=== PATIENT | female | born 1925 | race Caucasian/White ===

== ENCOUNTER 2017-05-21 09:11 | Inpatient (IN) ==
--- NOTE | 2017-05-21 09:34 | Emergency Department Note ---
Arrival - Arrival Chief Complaint: Altered Mental Status Stated Complaint: AMS ED Nursing Triage Note: Pt sent [place] [facility] [place] after being taken to eat breakfast , then while attempting to give patient her medications she became unresponsive to [facility] staff. Mode of Arrival: Stretcher Source: Old Records Reviewed Time Seen by Provider: 05/21/17 09:29 - History of Present Illness HPI Narrative: This 89-year-old white female resident of the halfway with severe dementia presents on referral from the halfway for a spell observed during breakfast. During breakfast service the patient was alleged to have become unresponsive to the nursing staff as far as communications but not as concerns consciousness. The patient currently states she feels fine but is disoriented to time and place. Notable, at the halfway she returned to herself with the use of ammonia. The patient cannot give any cognizant history herself at this time, but appears medically stable. A family member that is present states she appears less communicative than usual as he states that although she is demented, she ambulates well and can carry on a conversation normally frequently going out to eat with the family. Of note, the patient is a DNR. Onset (ago): hour(s) (Patient presents 1 hour after episode) Allergies/Adverse Reactions: Allergies Allergy/AdvReac Type Severity Reaction Status Date / Time sertraline [From Zoloft] Allergy Unknown/Unable Verified 05/21/17 09:23 to obtain sulfamethoxazole Allergy Unknown/Unable Verified 05/21/17 09:23 [From Bactrim] to obtain trimethoprim [From Bactrim] Allergy Unknown/Unable Verified 05/21/17 09:23 to obtain Review of System - Review of System ROS unobtainable: due to mental status Medical,Surgical,& Family Hx - Medical History Cardio: History of: Cardiac Dysrhythmia (afib), CHF, Hypertension Psychological: History of: Depression Neurology: History of: Dementia (alzheimer's) - Social History Smoking Status: Never smoker Exam Physical Examination: GENERAL: Well developed, well nourished elderly white female in no acute distress. HEENT: Normocephalic. No trauma. Moist mucous membranes. EOMI. PERRLA. ENT NML NECK: Supple. No adenopathy. CARDIAC: Regular. No murmurs. Heart rate 92 CHEST: Clear to auscultation. No respiratory distress. O2 sat 93 per ABDOMEN: Soft. Nontender. Active bowel sounds. EXTREMITIES: No trauma. Normal ROM. No pedal edema. SKIN: No diaphoresis. No rash. NEURO: Alert. Oriented to person only. Motor, sensory, vibratory intact. No focal deficits. Vital Signs: Vital Signs Temperature 97.1 F L 05/21/17 09:28 Pulse Rate 80 05/21/17 10:31 Respiratory Rate 18 05/21/17 10:31 Blood Pressure 156/68 05/21/17 10:31 O2 Sat by Pulse Oximetry 97 05/21/17 10:31 Course - Reevaluation(s) Reevaluation #1: Discussed with family, and our plan is for admission and evaluation with PT to see if the patient can return to her halfway setting. - Consultations Consultation #1: Discussed with Dr. Mehta who will admit for further evaluation treatment. Results - Labs CBC & BMP: 05/21/17 10:00 05/21/17 10:00 Labs: I have reviewed the laboratory and noted its gross normality - Impressions EKG: Atrial fibrillation at 78 with normal QRS interval. Nonspecific ST changes. No acute injury pattern. - Diagnostic Findings Procedure: Chest x-ray: image reviewed by me, report reviewed by me ( Cardiomegaly with interstitial scarring and small effusions), CT: image reviewed by me, report reviewed by me (Head: Microvascular ischemia and cerebral atrophy with evidence of an acute or subacute left parietal/occipital infarct with mass-effect) Disposition Clinical Impression: CVA, Dementia Case discussed with: patient's family Disposition: Still a Patient Condition: Stable Time of Disposition: 11:15
--- NOTE | 2017-05-21 09:50 | CT Report ---
Exam: CT scan of brain without contrast Date: 05/21/2017 Indication: Altered mental status Comparison: None Patient's classification: Emergency department Technical: Images were obtained from the skull base to the vertex without the use of intravenous contrast. Dose reduction was performed with decreasing kv and mA and automated exposure Total DLP: 997.9 mGy*cm Findings: The examination reveals decreased attenuation in the left parietal-occipital lobe consistent with an area of infarction. The ventricles are mildly enlarged. Small vessel changes are present. The brainstem is intact. The cerebellum reveals atrophic changes. No acute hemorrhage present. The paranasal sinuses globes and cell and mastoids are otherwise intact. Minimal calcification of the falx cerebri present. Impression: 1. Findings consistent with acute to subacute left parietal/ occipital lobe infarction with some mass effect on the trigone of left lateral ventricle. No obvious hemorrhage present. 2. Diffuse small vessel ischemic changes and component of atrophy. MRI the brain may be beneficial for further evaluation. PROCEDURE INTERPRETED AT [facility] DEPARTMENT OF RADIOLOGY Final Report Signed by: Dr. Casper Johnson
--- NOTE | 2017-05-21 09:56 | XRay Report ---
Exam: XR chest 1V portable Date: 05/21/2017 9:30 AM Indication: Altered mental status Comparison: 03/17/2010 Technical: AP Findings: Cardiomegaly with low volume effusions. External cardiac leads are present. ASVD is present. Calcification of the endobronchial airway. Previous cholecystectomy clips present. Mild dextroscoliosis. Scarring present in the perihilar regions. No pneumothorax. Impression: 1. Cardiomegaly with tiny low volume effusions and underlying component of COPD and fibrotic scarring 2. Previous cholecystectomy PROCEDURE INTERPRETED AT [facility] DEPARTMENT OF RADIOLOGY Final Report Signed by: Dr. Casper Johnson
[2017-05-21] MEDS ORDERED: methylPREDNISolone SOD SUC 125 MG/2 ML VIAL IV STA (10:07)
[2017-05-21 10:15] LABS: Basophils % 0.4 % (0.0-0.8); Eosinophils % 0.9 % (0.00-10.9); Hematocrit 37.4 VOL% (35.7-47.0); Hemoglobin 11.5 GM/DL (12.0-16.0); Immature Granulocytes % 0.2 %; Immature Granulocytes Absolute 0.01 #; Lymphocytes # 0.8 10*3/uL (1.4-4.0); Lymphocytes % 16.7 % (21.3-54.2); Mean Corpuscular HGB Conc 30.7 GM/DL (32-36); Mean Corpuscular Hemoglobin 29 PG (27-34); Mean Corpuscular Volume 95.2 FL (87-102); Mean Platelet Volume 11.6 FL (9.6-12.0); Monocytes # 0.4 10*3/uL (0.11-0.8); Monocytes % 8.9 % (1.7-12.7); Neutrophils # 3.4 10*3/uL (1.4-7.4); Neutrophils % 72.9 % (38.7-73.9); Platelet Count 157 T/CUMM (130-400); Red Blood Count 3.93 MC/CUMM (3.8-5.5); Red Cell Distribution Width 15.8 % (9.3-17.3); White Blood Count 4.6 T/CUMM (4-12)
--- NOTE | 2017-05-21 10:24 | EKG Report ---
Stationary ECG Study [facility] ER Test Date: 05/21/2017 10:22:39 AM Pat Name: JOSE WHITE Department: Room: Gender: F It Business Process Architect: : [id number] Requested by: Dave Mitchell Order Number: [id number] Reading MD: SHEILA DE LA ROSA Intervals Natalia Rate: 78 P: 999 OK: 0 QRS: -64 QRSD: 115 T: 11 QT: 384 QTc: 417 Interpretive Statements ATRIAL FIBRILLATION LEFT ANTERIOR FASCICULAR BLOCK Electronically Signed On 05-22-17 11:41:12 CDT by SHEILA DE LA ROSA [email or web address]
[2017-05-21 10:30] LABS: Apearance,Urine CLEAR (Clear); Bilirubin,Urine Negative (Negative); Blood, Urine Small mg/dL (Negative); Glucose,Urine (UA) Negative (Negative); Ketones,Urine 5 mg/dL (Negative); Mucus,Urine Occasional /LPF (Occasional); Nitrite,Urine Negative (Negative); Protein,Urine 30 MG/DL; RBC,Urine 4 /HPF (0-4); Squamous Epithelial Cell,Urine Occasional /HPF (0-10); Urine Color Amber (Yellow); Urine Specific Gravity 1.026 (1.001-1.035); WBC,Urine 2 /HPF (0-6)
[2017-05-21 10:47] LABS: Lactic Acid 1.1 MMOL/L (0.4-2.0)
[2017-05-21 10:50] LABS: Alanine Aminotransferase 12 U/L (13-56); Albumin 3.3 G/DL (3.4-5.0); Alkaline Phosphatase 70 U/L (45-117); Aspartate Amino Transferase 22 U/L (0-37); Blood Urea Nitrogen 18 MG/DL (7-18); Calcium 8.8 MG/DL (8.5-10.1); Glucose 100 MG/DL (74-106); Osmolality,Calculated 284.1 MOS/KG (273-304); Potassium 4.1 MMOL/L (3.5-5.1); Sodium 142 MMOL/L (136-145); Total Protein 6.8 G/DL (6.4-8.3); Troponin I Only < 0.015 NG/ML (0.00-0.045)
[2017-05-21 10:54] LABS: Ammonia < 10 UMOL/L (11-32)
[2017-05-21] MEDS ORDERED: ONDANSETRON 4 MG/2 ML VIAL IV PRN (11:17)
[2017-05-21] MEDS ORDERED: methylPREDNISolone SOD SUC 125 MG/2 ML VIAL ONE (11:28)
--- NOTE | 2017-05-21 11:32 | Family Practice History&Phys ---
Assessment and Plan (1) CVA (cerebrovascular accident) Status: Acute Assessment and plan: Will consult neurology, spoke to ,, 2. Will continue home oral blood thinners, follow neurologist recommendations, Patient has severe dementia continue Aricept, Namenda, Remeron 3. A. fib, chronic, presently on Eliquis 4. CHF, stable on meds 5.HTN , stable, continue current antihypertensives, 6. Hyperlipidemia, on pravastatin 7. GERD, stable,on Prilosec 8. Depression stable on Lexapro. Current Visit: Yes Qualifiers: CVA mechanism: unspecified Qualified Code(s): I63.9 - Cerebral infarction, unspecified (2) Severe dementia Status: Acute Current Visit: Yes (3) Hypertension, essential Status: Acute Current Visit: Yes (4) Depression Status: Chronic Current Visit: Yes Qualifiers: Depression Type: unspecified Qualified Code(s): F32.9 - Major depressive disorder, single episode, unspecified (5) GERD (gastroesophageal reflux disease) Status: Chronic Current Visit: Yes Qualifiers: Esophagitis presence: without esophagitis Qualified Code(s): K21.9 - Gastro -esophageal reflux disease without esophagitis (6) CHF (congestive heart failure) Status: Chronic Current Visit: Yes Qualifiers: Congestive heart failure type: unspecified congestive heart failure type (7) Chronic atrial fibrillation Status: Chronic Current Visit: Yes History of Present Illness Chief complaint: was brought in from [facility] ,was unresponsive , this AM, by EMS History of present illness: Ms. Randhawa is a 89 year old female PCP: ,sees twice a year,. Consulted Neurologist, . Patient admitted for new onset CVA, for possible conservative management, Patient has chronic A. fib, rate controlled, asymptomatic, history of hypertension, GERD, severe dementia, depression, CHF. Patient is a poor historian, with severe dementia ,elderly female patient, DNR status,in [place] since 2 years, History obtained from caregiver, patient's [id number] present at the bedside. Brought in by EMS, for unresponsive, was slumped in chair during today a.m. breakfast time, noted at [place], by the nursing staff at [facility], Accompanied by , daughter in law , no fever , nausea, vomiting , chest pain , SOB , headaches or dizziness, reported by the caregiver, in the past week from [facility]pc As per the caregiver patient ambulates well in the [facility]. Home Medications Medication Instructions Recorded Confirmed Type Acetaminophen Tab [Tylenol Tab] 2 tablet PO Q4HR PRN 05/21/17 05/21/17 History Calcium (Carb)/Vit D 600-400 1 tablet PO BID 05/21/17 05/21/17 History [Caltrate 600 + D] Carvedilol [Coreg] 1 tablet PO BID 05/21/17 05/21/17 History Donepezil [Aricept] 10 mg PO BEDTIME 05/21/17 05/21/17 History Escitalopram [Lexapro] 1 tablet PO BEDTIME 05/21/17 05/21/17 History Ferrous Sulfate [Iron] 325 mg PO BID 05/21/17 05/21/17 History Gabapentin Cap/Tab [Neurontin 1 capsule PO BEDTIME 05/21/17 05/21/17 History Cap/Tab] LORazepam TAB [Ativan Tab] 1 tablet PO BID 05/21/17 05/21/17 History Lisinopril [Lisinopril] 1 tablet PO DAILY 05/21/17 05/21/17 History Memantine [Namenda] 1 tablet PO BID 05/21/17 05/21/17 History Mirtazapine [Remeron] 7.5 mg PO BEDTIME 05/21/17 05/21/17 History Omeprazole [Prilosec] 40 mg PO DAILY 05/21/17 05/21/17 History Potassium Chloride [Klor-Con 10] 1 tablet PO TID 05/21/17 05/21/17 History Pravastatin [Pravachol] 1 tablet PO DAILY 05/21/17 05/21/17 History Raloxifene [Evista] 1 tablet PO DAILY 05/21/17 05/21/17 History Rivaroxaban [Xarelto] 1 tablet PO DAILY 05/21/17 05/21/17 History Allergies Allergy/AdvReac Type Severity Reaction Status Date / Time sertraline [From Zoloft] Allergy Unknown/Unable Verified 05/21/17 09:23 to obtain sulfamethoxazole Allergy Unknown/Unable Verified 05/21/17 09:23 [From Bactrim] to obtain trimethoprim [From Bactrim] Allergy Unknown/Unable Verified 05/21/17 09:23 to obtain ROS unobtainable: due to mental status, due to dementia - Constitutional Constitutional: Present: as per HPI - EENT Eyes: Present: as per HPI Nose, mouth and throat: Present: as per HPI - Respiratory Respiratory: Present: as per HPI - Gastrointestinal Gastrointestinal: Present: as per HPI - Genitourinary Genitourinary: Present: as per HPI - Musculoskeletal Musculoskeletal: Present: as per HPI - Neurological Neurological: Present: as per HPI - Endocrine Endocrine: Present: as per HPI - Hematologic/Lymphatic Hematologic/Lymphatic: Present: as per HPI Medical,Surgical,& Family Hx - Medical History Cardio: History of: Cardiac Dysrhythmia (afib), CHF, Hypertension Psychological: History of: Depression Neurology: History of: Dementia (alzheimer's) - Social History Smoking Status: Never smoker Exam - Constitutional Vitals: Period Temp Pulse Resp BP Sys/Mohan Pulse Ox Last 24 Hr 97.1 F-97.1 F 75-92 18-19 139-156/68-93 93-97 Exam: Examination: Patient examined in the ER GENERAL: Awake, disoriented in no acute distress , elderly female pt, Lying in the bed, HEENT: Decreased hearing,PERRLA. EOMI. Mucous membranes are moist. NECK: Neck is supple. No JVD. No carotid bruit. No thyromegaly. CVS: Irregularly irregular heart rate, rate below 100 RESPIRATORY: Clear to ausculation bilaterally , No wheezes, rales or rhonchi. ABDOMEN: Soft and nontender. Bowel sounds are present. No hepatosplenomegaly. EXT: No edema. TWISTER HAND: Patient is awake, speech normal, no change as per the caregiver. Follows simple commands, Cranial nerves 2-12 grossly intact. Motor strength 4+/ 5 bilateral upper extremities, 4/5 bilateral lower extremities. Results - Labs CBC & BMP: 05/21/17 10:00 05/21/17 10:00 Lab Results: I have reviewed the past 24 hour labs - Impressions Head CT without contrast from 05/21/2017 Impression: 1. Findings consistent with acute to subacute left parietal/ occipital lobe infarction with some mass effect on the trigone of left lateral ventricle. No obvious hemorrhage present. 2. Diffuse small vessel ischemic changes and component of atrophy. Chest x-ray from 05/21/2017 Impression: 1. Cardiomegaly with tiny low volume effusions and underlying component of COPD and fibrotic scarring 2. Previous cholecystectomy
[2017-05-21] MEDS: LORazepam 0.5 MG TABLET PO SCH (20:31)
[2017-05-21] MEDS: MEMANTINE 10 MG TABLET PO SCH (20:31)
[2017-05-21] MEDS: APIXABAN 2.5 MG TABLET PO SCH (20:31)
[2017-05-21] MEDS: CARVEDILOL 3.125 MG TABLET PO SCH (20:32)
[2017-05-21] MEDS ORDERED: MIRTAZAPINE 15 MG TABLET PO SCH (21:00)
[2017-05-21] MEDS ORDERED: PRAVASTATIN 20 MG TABLET PO SCH (21:00)
[2017-05-21] MEDS ORDERED: RALOXIFENE 60 MG TABLET PO SCH (21:00)
[2017-05-21] MEDS ORDERED: DONEPEZIL 10 MG TABLET PO SCH (21:00)
--- NOTE | 2017-05-22 08:51 | Family Practice Progress Note ---
Exam (Progress Note) - Constitutional Vitals: Period Temp Pulse Resp BP Sys/Mohan Pulse Ox Last 24 Hr 96.5 F-98.1 F 75-124 16-20 124-162/58-94 93-97 Results - Labs CBC & BMP: 05/21/17 10:00 05/21/17 10:00 Assessment and Plan (1) CVA (cerebrovascular accident) Status: Acute Assessment and plan: Will consult neurology, spoke to ,, 2. Will continue home oral blood thinners, follow neurologist recommendations, Patient has severe dementia continue Aricept, Namenda, Remeron 3. A. fib, chronic, presently on Eliquis 4. CHF, stable on meds 5.HTN , stable, continue current antihypertensives, 6. Hyperlipidemia, on pravastatin 7. GERD, stable,on Prilosec 8. Depression stable on Lexapro. Current Visit: Yes Qualifiers: CVA mechanism: unspecified Qualified Code(s): I63.9 - Cerebral infarction, unspecified (2) Severe dementia Status: Acute Current Visit: Yes (3) Hypertension, essential Status: Acute Current Visit: Yes (4) Depression Status: Chronic Current Visit: Yes Qualifiers: Depression Type: unspecified Qualified Code(s): F32.9 - Major depressive disorder, single episode, unspecified (5) GERD (gastroesophageal reflux disease) Status: Chronic Current Visit: Yes Qualifiers: Esophagitis presence: without esophagitis Qualified Code(s): K21.9 - Gastro -esophageal reflux disease without esophagitis (6) CHF (congestive heart failure) Status: Chronic Current Visit: Yes Qualifiers: Congestive heart failure type: unspecified congestive heart failure type (7) Chronic atrial fibrillation Status: Chronic Current Visit: Yes
--- NOTE | 2017-05-22 08:54 | Neurology Consult Note ---
History of Present Illness History of present illness: It 11 years old right-handed white lady who is a resident of [facility] with past medical history significant for hypertension, GERD, dementia, depression, CHF, atrial fibrillation admitted to the hospital with fairly acute onset of unresponsiveness. Family reported that she slumped in chair during the breakfast yesterday morning. She has regained some of her strength and speech. She is swallowing good. Recently her Eliquis was stopped because of low H&H. She is back on Eliquis. A CT of the head revealed acute left parietal/occipital lobe subacute to acute infarct. No nausea, vomiting, chest pain, shortness of breath, headache or dizziness reported. Family would like to go back to [facility] today. Home Medications Medication Instructions Recorded Confirmed Type Acetaminophen Tab [Tylenol Tab] 2 tablet PO Q4HR PRN 05/21/17 05/21/17 History Calcium (Carb)/Vit D 600-400 1 tablet PO BID 05/21/17 05/21/17 History [Caltrate 600 + D] Carvedilol [Coreg] 1 tablet PO BID 05/21/17 05/21/17 History Donepezil [Aricept] 10 mg PO BEDTIME 05/21/17 05/21/17 History Escitalopram [Lexapro] 1 tablet PO BEDTIME 05/21/17 05/21/17 History Ferrous Sulfate [Iron] 325 mg PO BID 05/21/17 05/21/17 History Gabapentin Cap/Tab [Neurontin 1 capsule PO BEDTIME 05/21/17 05/21/17 History Cap/Tab] LORazepam TAB [Ativan Tab] 1 tablet PO BID 05/21/17 05/21/17 History Lisinopril [Lisinopril] 1 tablet PO DAILY 05/21/17 05/21/17 History Memantine [Namenda] 1 tablet PO BID 05/21/17 05/21/17 History Mirtazapine [Remeron] 7.5 mg PO BEDTIME 05/21/17 05/21/17 History Omeprazole [Prilosec] 40 mg PO DAILY 05/21/17 05/21/17 History Potassium Chloride [Klor-Con 10] 1 tablet PO TID 05/21/17 05/21/17 History Pravastatin [Pravachol] 1 tablet PO DAILY 05/21/17 05/21/17 History Raloxifene [Evista] 1 tablet PO DAILY 05/21/17 05/21/17 History Rivaroxaban [Xarelto] 1 tablet PO DAILY 05/21/17 05/21/17 History Allergies Allergy/AdvReac Type Severity Reaction Status Date / Time sertraline [From Zoloft] Allergy Unknown/Unable Verified 05/21/17 09:23 to obtain sulfamethoxazole Allergy Unknown/Unable Verified 05/21/17 09:23 [From Bactrim] to obtain trimethoprim [From Bactrim] Allergy Unknown/Unable Verified 05/21/17 09:23 to obtain 12 point system: reviewed and no additional remarkable complaints except as stated Medical,Surgical,& Family Hx - Medical History Cardio: History of: Cardiac Dysrhythmia (afib), CHF, Hypertension Psychological: History of: Depression Neurology: History of: Dementia (alzheimer's) Hematology: History of: Anemia - Social History Smoking Status: Never smoker Frequency of Alcohol Use: None Type of Drug Use: None Exam - Constitutional Vitals: Period Temp Pulse Resp BP Sys/Mohan Pulse Ox Last 24 Hr 96.5 F-98.1 F 75-124 16-20 124-162/58-94 93-97 Exam: GENERAL: Patient is in no acute distress. NECK: Neck is supple. There is no JVD. No carotid bruits present. No thyroid masses. CVS: First and second heart sounds are normal. There is no S3 present. Regular rate and rhythm. RESPIRATORY: Lungs are clear to auscultation without any rales or rhonchi. ABDOMEN: Soft and non-tender. Bowel sounds are present. There is no hepatosplenomegaly. EXT: There is no palpable edema. Peripheral pulses are present. Skin: No rashes Central Nervous system: General: Alert, awake Speech: semi Fluent Comprehension: Fair Facial expressions: Normal Cranial Nerves: CN1/Olfactory: Normal CN II/ Optic: Normal, Visual [place] unreliable CN III, and : JERRY & EOMI CN V: Normal & intact CN VII: face is symmetric CNVIII: Normal CN XI/X/XI/XII: Intact and Normal Motor: Bulk and Tone is normal. Strength in the right 3/5 Strength in the left 3/5 Sensory: Grossly intact for all the modalities of PP, LT and temp sense Reflexes: 1+ and symmetrical Cerebellar function: Slow finger to nose and heel to robles testing. Toes: Equivocal Gait: Not tested at this time however did get up with mod assist to max assist to go to the bathroom Results - Labs CBC & BMP: 05/21/17 10:00 05/21/17 10:00 Assessment and Plan (1) Acute CVA (cerebrovascular accident) Status: Acute Assessment and plan: Agree with Eliquis 2.5 mg twice a day. Keep an eye on H&H Recommend TMR however family would like to take her back to [place]. Okay to be discharged today from neuro standpoint. No further/new recommendations. Recommend conservative management overall due to her advanced age Thank you for the consult Current Visit: Yes
[2017-05-22] MEDS ORDERED: LISINOPRIL 10 MG TABLET PO SCH (09:00)
[2017-05-22] MEDS ORDERED: PANTOPRAZOLE 40 MG TABLET PO SCH (09:00)
[2017-05-22] MEDS ORDERED: ESCITALOPRAM 10 MG TABLET PO SCH (09:00)
[2017-05-22] MEDS ORDERED: LORazepam 0.5 MG TABLET PO PRN (09:06)
[2017-05-22] MEDS: MEMANTINE 10 MG TABLET PO SCH (10:13)
[2017-05-22] MEDS: APIXABAN 2.5 MG TABLET PO SCH (10:13)
[2017-05-22] MEDS: CARVEDILOL 3.125 MG TABLET PO SCH (10:13)
[2017-05-22] MEDS: LORazepam 0.5 MG TABLET PO SCH (10:19)
[2017-05-22 11:47] VITALS: BP 147/87
--- NOTE | 2017-05-22 13:08 | Discharge Summary ---
Hospital Course - Hospital Course Hospital Course: Ms. Randhawa is a 89 year old female PCP: ,sees twice a year,. resident of [facility] dementia care [facility],DNR status,in [place] since 2 years, Consulted Neurologist, . Patient admitted for new onset CVA, for conservative management, Patient has chronic A. fib, rate controlled, asymptomatic, history of hypertension, GERD, severe dementia, depression, CHF. Patient is a poor historian, History obtained from caregiver, mentioned with fairly acute onset of unresponsiveness, it was noted that she slumped in chair during the breakfast on the day of admission, No nausea, vomiting, chest pain, shortness of breath, headache or dizziness was reported. Pt managed only conservatively given her age, no thrombolytics done after admission except eliquis, cause of potential side effects, She regained some of her strength and speech back the next day. swallowing was good. She was put back on Eliquis, was discontinued previously cause of low H& H concern,. A CT of the head revealed acute left parietal/occipital lobe subacute to acute infarct. PT/OT was consulted, daily labs were ordered, H/H was stable, 11.5/37.4 the patient was discharged to [facility], Family was given update of the pt's status from time to time,till she got discharged, Diagnosis - Discharge Diagnosis (1) CVA (cerebrovascular accident) Status: Acute (2) Severe dementia Status: Chronic (3) Hypertension, essential Status: Chronic (4) Depression Status: Chronic (5) GERD (gastroesophageal reflux disease) Status: Chronic (6) CHF (congestive heart failure) Status: Chronic (7) Chronic atrial fibrillation Status: Chronic Discharge Plan - Discharge Data Disposition: Disch/Xfer to Snf Condition at Discharge: Stable Discharge Diet: low salt diet Activity: resume usual activities as tolerated - Discharge Medications New Apixaban [Eliquis] 2.5 mg PO BID #60 tablet Continue Raloxifene [Evista] 1 tablet PO DAILY Lisinopril 1 tablet PO DAILY Calcium (Carb)/Vit D 600-400 [Caltrate 600 + D] 1 tablet PO BID Memantine [Namenda] 1 tablet PO BID Donepezil [Aricept] 10 mg PO BEDTIME Pravastatin [Pravachol] 1 tablet PO DAILY LORazepam TAB [Ativan Tab] 1 tablet PO BID Escitalopram [Lexapro] 1 tablet PO BEDTIME Ferrous Sulfate [Iron] 325 mg PO BID Omeprazole [Prilosec] 40 mg PO DAILY Potassium Chloride [Klor-Con 10] 1 tablet PO TID Carvedilol [Coreg] 1 tablet PO BID Acetaminophen Tab [Tylenol Tab] 2 tablet PO Q4HR PRN PRN Reason: Pain Mirtazapine [Remeron] 7.5 mg PO BEDTIME Gabapentin Cap/Tab [Neurontin Cap/Tab] 1 capsule PO BEDTIME Discontinued Rivaroxaban [Xarelto] 1 tablet PO DAILY - Follow Up or Referral - Forms/Instructions Exam - Constitutional Vitals: Period Temp Pulse Resp BP Sys/Mohan Pulse Ox Last 24 Hr 96.5 F-98.1 F 79-124 16-20 138-162/77-91 94-98 Exam: Examination: GENERAL: after waking her, pt examined, in no acute distress , elderly female pt , HEENT: Decreased hearing,PERRLA. EOMI. Mucous membranes are moist. NECK: Neck is supple. No JVD. No carotid bruit. No thyromegaly. CVS: Irregularly irregular heart rate, rate below 100 RESPIRATORY: Clear to ausculation bilaterally , No wheezes, rales or rhonchi. ABDOMEN: Soft and nontender. Bowel sounds are present. No hepatosplenomegaly. EXT: No edema. COOPER HELPER: Follows simple commands, Cranial nerves 2-12 grossly intact. Motor strength 4+/5 bilateral upper extremities, 4/5 bilateral lower extremities. Discharge Results Procedures and tests throughout hospitalization: Pending Orders 05/21/17 Blood Culture Stat 05/23/17 04:00 BMP [Basic Metabolic Panel] IN AM Comp Blood Count Auto Diff IN AM Labs on day of discharge: Preliminary micro results at discharge 05/21/17 Unknown Blood Culture - Preliminary Blood No growth at 1 day 05/21/17 Unknown Blood Culture - Preliminary Blood No growth at 1 day - Impressions blood Cx X 2 from 05/21/17 , showed no growth for 3 days, - Imaging and Cardiology Procedure: Chest x-ray: report reviewed by me, CT: report reviewed by me DS: Provider Date of admission: 05/21/17 11:16 Primary care physician: . No PCP Attending physician on admission: Robert Chacon MD Consults: 05/22/17 05:56 Consult to Physician [CONS] Routine Comment: Consulting Provider: Gary Prescott When should Consulting Provider be notified: Now 05/22/17 09:09 Consult to Occupational Therapy [CONS] Routine Reason for Occupational Therapy: Other Consult to Physical Therapy [CONS] Routine Reason for Physical Therapy: Other Discharging clinician: Sarah Mehta MD
== END 2017-05-22 14:43 | DRG 66 ==
LOC: EDBD → EDUNIT# → N.ED 09:11 → N.EDINP 11:16 → N.2E 14:15
PROVIDERS: ADMIT Internal Medicine; ATTEND Internal Medicine